=== PATIENT | female | born 1980 | race Asian ===

== ENCOUNTER 2020-08-09 12:33 | Outpatient (CLI) | payer BC | END 2020-08-09 12:34 | disposition home or self-care (01) | LOC: CSHLAB 12:33 | PROVIDERS: ATTEND Student in an Organized Health Care Education/Training Program | DX: Z01.812 Encounter for preprocedural laboratory examination (principal); Z20.822 Contact with and (suspected) exposure to COVID-19; D25.9 Leiomyoma of uterus, unspecified | CPT/HCPCS: 84703; 85027; 86850; 86900; 86901; 87635; U0003; U0005 ==

== ENCOUNTER 2020-08-14 09:02 | Day surgery (SDC) | payer BC ==
[2020-08-09 13:20] LABS: Mean Corpuscular HGB CONC 33.1 g/dL (32.0-36.0); Mean Corpuscular Hemoglobin 28.9 pg (27.0-33.0); Mean Corpuscular Volume 87.3 fl (81.6-98.3); Mean Platelet Volume 9.9 fl (7.4-10.4); Platelet Count 271 10x3/uL (150-450); RBC Distribution Width 12.3 % (11.5-14.5); White Blood Cell (WBC) Count 6.3 10x3/uL (3.5-10.5)
[2020-08-09 13:29] LABS: BHCG - Serum Negative (NEGATIVE); Pregs Control Background? CLEAR/WHITE (CLR/WHITE); Pregs Control Bar Appear? YES (CONTROL BAR)
[2020-08-10 11:37] LABS: SARS-CoV-2 PCR by NAA Not Detected (NotDetected)
[2020-08-10 14:00] VITALS: BMI 25.7
[~2020-08-14 09:02] MED LIST: CeleCOXIB 100 MG CAP ONE; Famotidine/PF 20 mg/2ml Vial ONE; Gabapentin 300 MG CAP ONE; Lidocaine 1% MPF 2 ML VIAL ONE
[2020-08-14] MEDS ORDERED: Midazolam HCl 2 mg/2 ml Vial ONE (10:33)
[2020-08-14] MEDS ORDERED: Lidocaine 2% Jelly 5 ML TUBE ONE (10:35)
[2020-08-14] MEDS ORDERED: Bupivacaine PF 0.5% 30 ML VIAL ONE (10:38)
[2020-08-14] MEDS ORDERED: PROPOFOL 0 ML ONE (10:39)
[2020-08-14] MEDS ORDERED: Fentanyl 100 MCG/2 ML VIAL ONE ×2 (10:39)
[2020-08-14] MEDS ORDERED: Rocuronium Bromide 10 MG/ML (10ML VIAL) ONE (10:39)
[2020-08-14] MEDS ORDERED: Lidocaine 1% PF 5 ML VIAL ONE (10:39)
[2020-08-14] MEDS ORDERED: ePHEDrine 50 MG/ML VIAL ONE (11:24)
[2020-08-14] MEDS ORDERED: Dexamethasone 20 MG/5 ML VIAL ONE (11:30)
[2020-08-14] MEDS ORDERED: Glycopyrrolate 0.2 MG/ML 5 ML SYRINGE ONE ×2 (11:39→12:55)
[2020-08-14] MEDS ORDERED: Methylene Blue 50 MG/10 ML AMPUL ONE (12:37)
[2020-08-14] MEDS ORDERED: PROPOFOL 20 ML ONE (12:38)
[2020-08-14] MEDS ORDERED: Ondansetron PF 4 MG/2 ML Vial ONE ×2 (12:55→15:34)
[2020-08-14] MEDS ORDERED: Bacitracin 1 PK ONE (13:18)
[2020-08-14] MEDS ORDERED: Ketorolac Tromethamine 30 MG/ML VIAL ONE (13:37)
== END 2020-08-14 17:18 | disposition home or self-care (01) ==
LOC: CSHSDC 09:02
PROVIDERS: ATTEND Student in an Organized Health Care Education/Training Program
PROC: 0UB94ZZ Excision of Uterus, Percutaneous Endoscopic Approach (ICD-10-PCS; principal; 2020-08-14)
PROC: 3E0P8KZ Introduction of Other Diagnostic Substance into Female Reproductive, Via Natural or Artificial Opening Endoscopic (ICD-10-PCS; principal; 2020-08-14)
DX: D25.2 Subserosal leiomyoma of uterus (principal); N80.9 Endometriosis, unspecified; N97.9 Female infertility, unspecified; N73.6 Female pelvic peritoneal adhesions (postinfective); E03.9 Hypothyroidism, unspecified; E11.9 Type 2 diabetes mellitus without complications; Z79.84 Long term (current) use of oral hypoglycemic drugs; Z79.899 Other long term (current) drug therapy; Z88.1 Allergy status to other antibiotic agents; Z20.822 Contact with and (suspected) exposure to COVID-19
CPT/HCPCS: 36415; 84703; 85027; 86850; 86900; 86901; 87635; 88305; J0690; J1100; J1885; J2250; J2405; J2704; J3010; J3490; Q9968; S0020; S0028; U0003; U0005